=== PATIENT | male | born 1950 | race Caucasian/White ===

== ENCOUNTER 2018-04-29 05:55 | Observation (INO) | payer MEDICARE, OTHER ==
[~2018-04-29] VITALS: Ht 180.3 cm; Wt 104.6 kg
[2018-04-29] VITALS (28 sets, daily range): BP systolic 114–169; BP diastolic 51–94; PULSE 65–107; RESP 12–24; Ht 180.3 cm; Wt 104.6 kg
[2018-04-29] MEDS ORDERED: THROMBIN 5000 UNIT VIAL ONE (06:55)
[2018-04-29] MEDS ORDERED: POVIDONE IODINE 10% 28.4 GM OINT ONE (06:55)
[2018-04-29] MEDS ORDERED: GELATIN SIZE 100 SPONGE ONE (06:55)
[2018-04-29] MEDS ORDERED: POLYMYXIN/BACITRACIN 1L IRRIG ONE (06:55)
[2018-04-29] MEDS ORDERED: ROPIVACAINE 0.5 % 30 ML VIAL ONE ×2 (06:55→07:11)
[2018-04-29] MEDS ORDERED: ONDANSETRON 4 MG INJ IV PRN ×2 (07:00→13:00)
[2018-04-29] MEDS ORDERED: OXYCODONE/ACETAMINOPHEN (5/325) TAB PO PRN ×2 (07:00)
[2018-04-29] MEDS ORDERED: hydrALAzine 20 MG INJ IV PRN (07:00)
[2018-04-29] MEDS ORDERED: ALBUTEROL 0.083% (NEB) 2.5 MG/3 ML AMP HHN PRN (07:00)
[2018-04-29] MEDS ORDERED: DIPHENHYDRAMINE 50 MG INJ IV PRN (07:00)
[2018-04-29] MEDS ORDERED: MEPERIDINE 25 MG INJ IV PRN (07:00)
[2018-04-29] MEDS ORDERED: IPRATROPIUM (NEB) 0.5 MG/2.5 ML AMP HHN PRN (07:00)
[2018-04-29] MEDS ORDERED: LABETALOL HCL 20MG INJ IV PRN (07:00)
[2018-04-29] MEDS ORDERED: EPHEDrine SULFATE 50 MG/5 ML SYG IV PRN (07:00)
[2018-04-29] MEDS ORDERED: MIDAZOLAM 1 MG/ML 2 ML INJ IV PRN (07:00)
[2018-04-29] MEDS ORDERED: TRIMETHOBENZAMIDE 100 MG/ML VIAL IM PRN (07:00)
[2018-04-29] MEDS ORDERED: FENTAnyl 50 MCG/ML VIAL IV PRN ×3 (07:00)
[2018-04-29] MEDS ORDERED: HYDROmorphONE 1 MG/5 ML IV SYRINGE IV PRN ×3 (07:00)
--- NOTE | 2018-04-29 07:04 | PREAC ---
Date/Time of Note Date/Time of Note DATE: 04/29/18 TIME: 07:01 Anesthesia Eval and Record Evaluation Time Pre-Procedure Interview DATE: 04/29/18 TIME: 07:01 Age 67 Sex male NPO: 8 hrs Preoperative diagnosis POST TRAUMATIC OA LEFT ANKLE SUBTALAR JOINT Planned procedure LEFT ANKLE SCOPE, ARTHRODESIS SUBTALAR JOINT, ILIAC CREST GRAFT Past Medical History Past Medical History: Includes Cardio: Dyslipidemia Psych: Bipolar Surgery & Anesthesia Issues No known issue Meds Anticoagulation: No Beta Gaetano within 24 hr: No Reason Beta Gaetano not given: Pt. not on B-Gaetano Meds reviewed: Yes Allergies Coded Allergies: No Known Allergy (Unverified , 03/28/18) Allergies Reviewed: Yes Labs/Studies Labs Reviewed: Reviewed by anesthesiologist Result Diagram: 04/29/18 0634 Laboratory Tests 04/29/18 06:34 test: N/A Studies: ECG (LT AXIS), CXR (1.4 cm nodular opacity overlying the right lower lobe. It may represent a lung nodule versus a nipple shadow. PATIENT INFORMED OF THE NODULE!) Pre-procedure Exam Airway: Adequate mouth opening, Adequate thyromental dist Mallampati: Mallampati II Teeth: Normal Lung: Normal Heart: Normal ASA Physical Status ASA physical status: 2 Emergency: None Planned Anesthetic General/MAC: ETT Nerve block: Sciatic (left) Planned Pain Management Single shot nerve block, Parenteral pain med Pre-operative Attestations Prior to commencing anesthesia and surgery, the patient was re-evaluated, there was verification of: *The patient's identity *The results of appropriate recent lab work and preoperative vital signs *The above evaluation not changing prior to induction *Anesthetic plan, risk benefits, alternative and complications discussed with patient/family; questions answered; patient/family understands, accepts and wishes to proceed. Lucio Kc M.D. Apr 29, 2018 07:03
[2018-04-29] MEDS ORDERED: NEOSTIGMINE 3 MG/3 ML SYRINGE ONE (07:09)
[2018-04-29] MEDS ORDERED: GLYCOPYRROLATE 0.4 MG INJ ONE (07:09)
[2018-04-29] MEDS ORDERED: PROPOFOL 20 ML ONE (07:09)
[2018-04-29] MEDS ORDERED: MIDAZOLAM 1 MG/ML 2 ML INJ ONE (07:09)
[2018-04-29] MEDS ORDERED: FENTAnyl 50 MCG/ML VIAL ONE ×2 (07:09→08:14)
[2018-04-29] MEDS ORDERED: ROCURONIUM 50 MG INJ ONE (07:09)
[2018-04-29] MEDS ORDERED: CEFAZOLIN 1 GM INJ ONE (07:09)
[2018-04-29] MEDS ORDERED: ONDANSETRON 4 MG INJ ONE (07:10)
[2018-04-29] MEDS ORDERED: DEXAMETHASONE 4 MG/ML 5 ML INJ ONE (07:10)
[2018-04-29] MEDS ORDERED: SUGAMMADEX SODIUM 200 MG/2 ML VIAL IV ONE (11:34)
--- NOTE | 2018-04-29 12:44 | OPPN ---
Date/Time of Note Date/Time of Note DATE: 04/29/18 TIME: 12:43 Operative Report Preoperative Diagnosis Post traumatic OA of Left subtalar joint Postoperative Diagnosis same Operation/Procedure Performed Left open subtalar arthrodesis with illiac crest autograft Surgeon see signature line assistant site manager DO Michael Anesthesia: general Estimated blood loss: 10 - 50 ml's Transfusion Required none Specimen none Grafts/Implants none Complications none TORITO ACEVES MD Apr 29, 2018 12:44
[2018-04-29] MEDS ORDERED: DIPHENHYDRAMINE 25 MG CAP PO PRN (13:00)
[2018-04-29] MEDS ORDERED: CEFAZOLIN 1 GM/50 ML (PMX) 50 ML IVPB SCH (13:00)
[2018-04-29] MEDS ORDERED: BISACODYL 10 MG SUPP PR PRN (13:00)
[2018-04-29] MEDS ORDERED: HYDROmorphONE 0.2 MG/ML PCA IV SCH (13:00)
[2018-04-29] MEDS ORDERED: morphine 10 MG INJ IV PRN (13:00)
--- NOTE | 2018-04-29 13:31 | OPR ---
DATE OF OPERATION: 04/29/2018 PREOPERATIVE DIAGNOSES: 1. Severe degenerative joint disease of the left subtalar joint. 2. Status post previous surgery of the left hindfoot. POSTOPERATIVE DIAGNOSES: 1. Severe degenerative joint disease of the left subtalar joint. 2. 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 3. Status post previous surgery of the left hindfoot. PROCEDURES: 1. Arthrodesis of the left subtalar joint with two 7.3 AO cannulated screws. 2. Insertion of iliac crest bone graft to the arthrodesis site. 3. Insertion of Ignite and Augment to the arthrodesis site to facilitate healing. 4. Use of fluoroscopy to verify position and alignment of the guide pins, subtalar joint and screws. 5. Short-leg cast. SURGEON: Torito Aceves MD TAIL EDGER: Harrison Rodriguez MD ANESTHESIA: General with popliteal block. TOURNIQUET TIME: 125 minutes. Extremely complex and difficult procedure because the patient had previous surgery and there was weston re fibrosis, scarring and very difficult to find the subtalar joint. In addition because of the nohemi ent's previous posterior incision, we had to make a flap and it was much more difficult to do the pro cedure and gain access to the subtalar joint because of the incision we had to work with. Because of all these, it took additional 60 minutes of operative time (22). DESCRIPTION OF PROCEDURE: The patient was taken to the operating room and placed in supine position. Satisfactory popliteal block was given. A 2 grams Ancef were given intravenously. The entire left lower extremity was prepped and draped in the usual manner. Our incision was first addressed in the iliac crest. Incision was made posterior to the anterior, le perior iliac spine. Dissection was carried down to subcutaneous tissue. Bleeders coagulated as enco untered. The fascia was split in line with its fibers and was peeled off the inner and outer table a nd retracted. A saw was used to make 2 vertical cuts and 1 horizontal cut and the trap door was lift ed up. Using different angled curettes, bone graft was obtained. We also obtained bone marrow aspir ate which we saved as well and the patient had good amount of bone graft. After adequate amount of b one graft was removed, wounds were irrigated with antibiotic solution and the wounds were packed with thrombin-soaked Gelfoam. Towel was placed over everything. Gloves were changed. Our attention was then turned to the ankle. Tourniquet was inflated to 250 mmHg using a sterile tourniquet. The patient had a posterolateral inc ision which made access to the subtalar joint extremely difficult. We angled it distally more anteri yaakov and made a flap being careful as we could get to the subtalar joint. The peroneal tendons were displaced anteriorly which were in the way and had to be brought back posteriorly. There were no tea rs in the tendons after opening the tendon sheath. Eventually, we were able to get to the area what we thought was the subtalar joint. We took a lateral fluoroscopic view with a needle in place and we were in the subtalar joint. Subtalar joint was then debrided with rongeur, different angled curette s. A laminar regional marketing manager was then put in, all the articular cartilage was removed from the subtalar guillermo nt. There was a lot of sclerotic hard bone because of the arthritis. Using an osteotome and curette s, all the articular cartilage was removed all the way to medially through the subtalar joint and sin us tarsi. A bur was then used to remove about 1 mm of bone until we get through the sclerotic bone i nto more good bleeding bone. We made burring from lateral to medial and posterior to anterior until the entire area was debrided both in the calcaneus and on the talus. Multiple "spot welds" were made with the bur to facilitate healing. Multiple drill holes were made with 0.062 K-wire. An osteotome was used to make multiple shingles in the bone on the talus and calcaneus. Once we have a very good bleeding surfaces, we felt we are ready to do the fusion. Incision was made medial to the anterior tibial tendon. Dissection was carried down to subcutaneous tissue. The capsule was opened. We identified the talar neck. A guide pin from the 7.3 AO cannulat ed drill set was placed on the talar neck, angled posterolaterally, was checked in the lateral plane and looked to be in good position. The vector drill guide was used to place the guide pin exactly wh ere we wanted to come in exiting the posterolateral heel. We checked in AP and lateral planes with g ood position and alignment. The pin length was checked to get the exact length of the screw. Incisi on was made posterolateral where the pin came out. The drill was used to drill through the calcaneus and just barely across the subtalar joint. Appropriate length 7.3 AO cannulated screw was then inse rted. Excellent fixation was obtained. It should be noted prior to inserting the guide pin across t he subtalar joint, the bone graft was inserted in the subtalar joint and sinus tarsi along with some the Augment and Ignite. We then compressed it all, put the drill pin across the subtalar joint, dril led and then put the screw across the subtalar joint retrograde. Excellent fixation was obtained. T he bone was of excellent quality. A second guide pin was made more parallel and superior to the firs t through the percutaneous carrillo in the skin on the heel. Length was measured. The drill was partial ly drilled across and a second screw was put in. Final fluoroscopic view showed excellent position a nd alignment of the screws in AP and lateral planes. Excellent compression across the subtalar joint was obtained. The wounds were then irrigated clear. The capsule was closed with a running 2-0 undy ed Vicryl anteromedially. Subcutaneous was closed with 3-0 undyed Vicryl and skin was closed with 4- 0 black nylon. Ignite that will remain was inserted into the subtalar joint and sinus tarsi. A 2-0 PDS was used to close over the subtalar joint. A 3-0 PDS was used to close the peroneal tendon sheat h. A 3-0 undyed Vicryl was used to close further the subcutaneous tissue and the skin was closed wit h 4-0 black nylon. Saphenous nerve block was done with 0.5% ropivacaine. Gloves were changed. The iliac crest was irrigated clear. The thrombin-soaked Gelfoam was removed. The fascia was closed with a running 0 PDS, subcutaneous tissue was closed with 2-0 and 3-0 undyed V icryl and the skin with a running 3-0 subcuticular Prolene. Steri-Strips were applied as well as com pression dressing. Compression dressing was placed on the foot as well as a short-leg cast in neutra l position. Interprocedure sponge and needle count was correct. The patient tolerated procedure wel l. Saphenous nerve block as mentioned was done along the medial malleolus and a block was also done with 0.5% ropivacaine in the iliac crest. REAL ESTATE BROKER ASSOCIATE ORTHOPEDIC SURGEON: During the procedure, case management assistant orthopedic surgeon was used at my requ est. The case management assistant helped with retraction with mobilization. Furthermore, the case management assistant helped inse rt the screws while I held the ankle in the subtalar joint reduced. Without a skilled orthopedic nelly geon assisting, this could not have been done and should be compensated appropriately. Dictated By: TORITO ACEVES MD RF/JENIFFER Conf#: [id number] DID#: [id number]
[2018-04-29] MEDS: CEFAZOLIN 1 GM/50 ML (PMX) 50 ML IVPB SCH (17:06)
[2018-04-29] MEDS: SOD CHLORIDE 0.9% 1,000 ML IV SCH (17:08)
[2018-04-29] MEDS: SENNA/DOCUSATE NA (8.6MG/50MG) TAB PO SCH (21:23)
[2018-04-30] VITALS: BP 108/60; PULSE 98; RESP 18
[2018-04-30] MEDS: CEFAZOLIN 1 GM/50 ML (PMX) 50 ML IVPB SCH ×4 (00:15→23:41)
[2018-04-30] MEDS ORDERED: HYDROmorphONE 0.2 MG/ML PCA IV SCH (01:03)
[2018-04-30] MEDS: SOD CHLORIDE 0.9% 1,000 ML IV SCH ×3 (03:48→18:39)
[2018-04-30 04:00] VITALS: BP 117/58; PULSE 86; RESP 19
--- NOTE | 2018-04-30 06:38 | PN ---
Date/Time of Note Date/Time of Note DATE: 04/30/18 TIME: 06:32 Assessment/Plan VTE Prophylaxis Risk score (from Ns)>0 risk: 7 SCD applied (from Ns): Yes Pharmacological prophylaxis: rivaroxaban Lines/Catheters IV Catheter Type (from Nrsg): Peripheral IV Urinary Cath still in place: No Assessment/Plan Assessment/Plan Postraumatic OA of Left subtalar joint - s/p subtalar arthrodesis with illiac crest autograft - Keep dressing clean dry and intact - NWB LLE - PT to eval and treat - keep LLE elevated - likely DC home today - f/u with Dr. Aceves as scheduled Result Diagram: 04/29/18 0634 04/29/18 0634 Results 24hrs Laboratory Tests Test 04/29/18 06:34 White Blood Count 5.6 Red Blood Count 4.98 Hemoglobin 15.0 Hematocrit 43.9 Mean Corpuscular Volume 88.2 Mean Corpuscular Hemoglobin 30.1 Mean Corpuscular Hemoglobin Concent 34.2 Red Cell Distribution Width 12.9 Platelet Count 192 Mean Platelet Volume 9.8 Immature Granulocytes % 0.400 Neutrophils % 57.9 Lymphocytes % 30.2 Monocytes % 8.6 Eosinophils % 2.5 Basophils % 0.4 Nucleated Red Blood Cells % 0.0 Immature Granulocytes # 0.020 Neutrophils # 3.2 Lymphocytes # 1.7 Monocytes # 0.5 Eosinophils # 0.1 Basophils # 0.0 Nucleated Red Blood Cells # 0.0 Sodium Level 142 Potassium Level 4.0 Chloride Level 110 Carbon Dioxide Level 23 Anion Gap 9 Blood Urea Nitrogen 14 Creatinine 0.80 Est Glomerular Filtrat Rate mL/min > 60 Glucose Level 113 Calcium Level 9.3 Total Bilirubin 0.2 Direct Bilirubin 0.00 Indirect Bilirubin 0.2 Aspartate Amino Transf (AST/SGOT) 28 Alanine Aminotransferase (ALT/SGPT) 34 Alkaline Phosphatase 75 Total Protein 7.3 Albumin 4.3 Globulin 3.00 Albumin/Globulin Ratio 1.43 Subjective 24 Hr Interval Summary Constitutional: no complaints Respiratory: no complaints Cardiovascular: no complaints Gastrointestinal: no complaints Musculoskeletal: no complaints Exam/Review of Systems Exam Vitals Vital Signs Date Temp Pulse Resp B/P (MAP) Pulse Ox O2 O2 Flow FiO2 Time Delivery Rate 04/30/18 18 05:00 04/30/18 98.4 86 117/58 95 Room Air 04:00 (77) 04/29/18 2.0 13:43 Intake and Output 04/29/18 04/29/18 04/30/18 1515:00 23:00 07:00 IntakeIntake Total 2560 ml 860 ml 960 ml OutputOutput Total 20 ml 1050 ml 800 ml BalanceBalance 2540 ml -190 ml 160 ml Results Results 24hrs Laboratory Tests Test 04/29/18 06:34 White Blood Count 5.6 Red Blood Count 4.98 Hemoglobin 15.0 Hematocrit 43.9 Mean Corpuscular Volume 88.2 Mean Corpuscular Hemoglobin 30.1 Mean Corpuscular Hemoglobin Concent 34.2 Red Cell Distribution Width 12.9 Platelet Count 192 Mean Platelet Volume 9.8 Immature Granulocytes % 0.400 Neutrophils % 57.9 Lymphocytes % 30.2 Monocytes % 8.6 Eosinophils % 2.5 Basophils % 0.4 Nucleated Red Blood Cells % 0.0 Immature Granulocytes # 0.020 Neutrophils # 3.2 Lymphocytes # 1.7 Monocytes # 0.5 Eosinophils # 0.1 Basophils # 0.0 Nucleated Red Blood Cells # 0.0 Sodium Level 142 Potassium Level 4.0 Chloride Level 110 Carbon Dioxide Level 23 Anion Gap 9 Blood Urea Nitrogen 14 Creatinine 0.80 Est Glomerular Filtrat Rate mL/min > 60 Glucose Level 113 Calcium Level 9.3 Total Bilirubin 0.2 Direct Bilirubin 0.00 Indirect Bilirubin 0.2 Aspartate Amino Transf (AST/SGOT) 28 Alanine Aminotransferase (ALT/SGPT) 34 Alkaline Phosphatase 75 Total Protein 7.3 Albumin 4.3 Globulin 3.00 Albumin/Globulin Ratio 1.43 Medications Medication Current Medications Senna/Docusate Sodium (Senokot-S) 1 tab BID PO Last administered on 04/29/18at 21:23; Admin Dose 1 TAB; Start 04/29/18 at 21:00 Magnesium Hydroxide (Milk Of Mag) 30 ml HS PO ; Start 05/01/18 at 21:00 Bisacodyl (Dulcolax Supp) 10 mg DAILY PRN [place] CONSTIPATION; Start 04/29/18 at 13:00 Sodium Chloride 1,000 ml @ 100 mls/hr Q10H IV Last administered on 04/30/18at 03:48; Admin Dose 100 MLS/HR; Start 04/29/18 at 12:39 Oxycodone/ Acetaminophen (Percocet (5/ 325)) 2 tab Q4H PRN PO PAIN; Start 04/29/18 at 13:00 Morphine Sulfate (morphine) 5 mg Q4H PRN IV PAIN LEVEL 7-10; Start 04/29/18 at 13:00 Ondansetron HCl (Zofran Inj) 4 mg Q4H PRN IV NAUSEA AND/OR VOMITING; Start 04/29/18 at 13:00 Diphenhydramine HCl (Benadryl) 25 mg Q4H PRN PO ITCHING; Start 04/29/18 at 13:00 Rivaroxaban (Xarelto) 10 mg WITH DINNER PO ; Start 04/30/18 at 17:55 Cefazolin Sodium 50 ml @ 100 mls/hr Q8H IVPB Last administered on 04/30/18at 00:15; Admin Dose 100 MLS/HR; Start 04/29/18 at 16:30; Stop 05/01/18 at 08:59 Hydromorphone HCl (Dilaudid SCRAP SORTER) MG/HR CONTINUOUS RATE ... Q4PCA IV Last administered on 04/30/18at 01:11; Admin Dose 6 MG; Start 04/30/18 at 01:03 TORITO ACEVES MD Apr 30, 2018 06:38
[2018-04-30 07:22] VITALS: BP 110/61; PULSE 68; RESP 18
[2018-04-30] MEDS: SENNA/DOCUSATE NA (8.6MG/50MG) TAB PO SCH ×2 (08:45→20:47)
[2018-04-30] MEDS: OXYCODONE/ACETAMINOPHEN (5/325) TAB PO PRN ×4 (10:19→22:20)
[2018-04-30 14:12] VITALS: BP 126/65; PULSE 82; RESP 19
[2018-04-30] MEDS ORDERED: RIVAROXABAN 10 MG TABLET PO SCH (17:55)
[2018-04-30 19:59] VITALS: BP 122/60; PULSE 88; RESP 18
[2018-05-01 01:50] VITALS: BP 131/68; PULSE 87; RESP 18
[2018-05-01] MEDS: OXYCODONE/ACETAMINOPHEN (5/325) TAB PO PRN ×3 (02:15→11:12)
[2018-05-01] MEDS: SOD CHLORIDE 0.9% 1,000 ML IV SCH (03:05)
[2018-05-01 08:25] VITALS: BP 133/69; PULSE 74; RESP 18
[2018-05-01] MEDS: SENNA/DOCUSATE NA (8.6MG/50MG) TAB PO SCH (09:06)
[2018-05-01] MEDS: CEFAZOLIN 1 GM/50 ML (PMX) 50 ML IVPB SCH (09:06)
--- NOTE | 2018-05-01 13:53 | PAC ---
Date/Time of Note Date/Time of Note DATE: 05/01/18 TIME: 13:53 Post-Anesthesia Notes Post-Anesthesia Note Last documented vital signs Vital Signs Date Temp Pulse Resp B/P (MAP) Pulse Ox O2 O2 Flow FiO2 Time Delivery Rate 05/01/18 98.8 74 18 133/69 95 08:25 (90) 04/30/18 Room Air 04:00 04/29/18 2.0 13:43 Activity: WNL Respiratory function: WNL Cardiovascular function: WNL Mental status: Baseline Pain reasonably controlled: Yes Hydration appropriate: Yes Nausea/Vomiting absent: Yes Lucio Kc M.D. May 01, 2018 13:53
[2018-05-01] MEDS ORDERED: MAGNESIUM HYDROXIDE 30ML CUP PO SCH (21:00)
--- NOTE | 2018-05-02 01:32 | DS ---
DATE OF ADMISSION: 04/29/2018 DATE OF DISCHARGE: 05/01/2018 DISCHARGE DIAGNOSIS: Severe degenerative arthritis of the left subtalar joint. SURGERIES: On 04/29/2018: 1. Arthrodesis, left subtalar joint with 2 screws. 2. Iliac crest bone graft to the arthrodesis site. HISTORY OF PRESENT ILLNESS: The patient is a 67-year-old male with pain, severe in the left subtalar joint after a previous calcaneal fracture. He is admitted now for surgical fusion. PAST MEDICAL HISTORY: See history and physical record. PHYSICAL EXAMINATION: Normal except the orthopedic exam revealed diffuse pain about the subtalar guillermo nt with loss of motion and strength. DIAGNOSTIC DATA: Laboratory was normal. Chest x-ray was clear. EKG was stable. HOSPITAL COURSE: The patient was cleared medically, taken to the operating room and underwent my pro cedure. Postoperatively, he had significant amount of pain. He was up ambulating the first postoper ative day and will be discharged the second postoperative day on pain pills and to be followed in the office in 1 week. He was discharged in stable condition. Dictated By: TORITO TRAN/JENIFFER Conf#: [id number] DID#: [id number]
== END 2018-05-01 11:50 | disposition home or self-care (01) ==
LOC: SDS 05:55 → INTOOBSV 12:39 → REC 12:39 → MS1 14:25
PROVIDERS: ADMIT Orthopaedic Surgery; ATTEND Orthopaedic Surgery
DX: M19.072 Primary osteoarthritis, left ankle and foot (principal); M24.672 Ankylosis, left ankle
CPT/HCPCS: 20900; 28725; 71045; 73630; 80053; 81003; 82306; 85025; 87086; 97116; 97161; 97530; C1713; G0378; J0690; J1100; J1170; J2250; J2405; J2795; J3010; J7030; 99217; J2710